=== PATIENT | female | born 1945 | race Caucasian/White ===

== ENCOUNTER 2024-08-13 09:42 | Outpatient (REF) | payer BC, SELFPAY ==
--- OUTSIDE RECORDS SUMMARY | 2024-08-13 09:56 | XMS_ITS | Encounter Summary ---
Author Organization [facility] Address [address] [place] [address] Care Team Providers Care Chronometer Adjuster Name Role Phone [facility], Primary Care Provider [phone] Reason for Visit * Reason Comments Neck Pain Patient reports one week of left sided neck pain. Patient denies any known injury at this time.?? Encounter Details Date Type Department Care Team (Late st Contact Info) Description 04/29/2024 9:30 EDT Walk-In [facility] [address] [place] [address] [id number] Jaylene Crawford PA-C [address] [place] [address] [address] [place], [place] [address] Muscle spasms of neck (Primary Dx) Social History Tobacco Use Types Packs/Day Years Used Date Smoking Tobacco: Never Assessed Sex and Gender Information Value Date Recorded Sex Assigned at Not on file Gender Identity Female 01/10/2024 11:47 EDT Sexual Orientation Not on file documented as of this encounter Last Filed Vital Signs Vital Sign Reading Time Taken Comments Blood Pressure 122/78 04/29/2024 0924 EDT Pulse 78 04/29/2024 0924 EDT Temperature 36.6 ??C (97.8 ??F) 04/29/2024 0924 EDT Respiratory Rate 16 04/29/2024 0924 EDT Oxygen Saturation 98% 04/29/2024 0924 EDT Inhaled Oxygen Concentration - - Weight - - Height - - Body Mass Index - - documented in this encounter Patient Instructions * Attachments The following attachments cannot be sent through Care Everywhere. * Neck Spasm (Danish) documented in this encounter Ordered Prescriptions Prescription Sig Dispensed Refills Start Date End Da te naproxen (NAPROSYN) 500 mg tabletIndications:Muscle spasms of neck Take 1 Tablet by mouth 2 times daily with breakfast and dinner. 30 Tablet 04/29/2024 methocarbamoL (ROBAXIN) 500 mg tabletIndications:Muscle spasms of neck Take 1 Tablet by mouth 4 times daily. 25 Tablet 04/29/2024 documented in this encounter Progress Notes * Arabella Wu RN - 04/29/2024 0930 EDT CC/HPI: Patient reports one week of left sided neck pain. Patient denies any known injury at this time. Covid Screening: In the last 72 hours, has the patient had: New or unusual cough, shortness of breath, new nasal congestion, sore throat, fever, chills, body aches, or new loss of taste or smell: No In the past 10 days, has the patient had a positive Covid test OR a confirmed close Covid exposure (<6ft for > 15mins in 24hr period)? (if yes, assign to [facility], regardless of vaccination status)-No PCP: [facility] ARABELLA WU RN 04/29/2024 9:21 * Jaylene Crawford PA-C - 04/29/2024 0930 EDT [facility] Chief Complaint(s): Neck Pain (Patient reports one week of left sided neck pain. Patient denies anyknown injury at this time./ ) HPI: Patient is here with her spouse, reports 6 days of left-sided atraumatic neck pain, patient reportsit might be because of how she sometimes falls asleep in a recliner, has done warm compresses, has taken Aleve, she is also try to take some of her Fioricet that she has for her migraines, she is otherwise well, patient reports the pain is left-sided and pulls in the area when she turns her head in any direction ROS: Review of Systems Constitutional: Negative for fever. Musculoskeletal: Positive for neck pain. Negative for falls. Objective: Examination: Vitals: BP 122/78 (BP Cuff Location: Left arm, BP Patient Position: Sitting, BP Cuff Sizes: Adult, regular) Pulse 78 Temp 36.6 ??C (97.8 ??F) (Oral) Resp 16 SpO2 98% Physical Exam Vitals reviewed. Constitutional: Appearance: Normal appearance. Musculoskeletal: General: Tenderness present. Comments: There is minor tenderness about the left SCM muscle, skin is intact, no erythema, no ecchymosis, no edema, insulation manager strength is equal bilaterally, patient has full range of motion of head and neck but reports the pulling sensation about the left side of her neck when she does move her head Neurological: Mental Status: She is alert and oriented to person, place, and time. Gait: Gait normal. Procedures Assessment & Plan: 1. Muscle spasms of neck - methocarbamoL (ROBAXIN) 500 mg tablet; Take 1 Tablet by mouth 4 times daily. Dispense: 25 Tablet;Refill: 0 - naproxen (NAPROSYN) 500 mg tablet; Take 1 Tablet by mouth 2 times daily with breakfast and dinner. Dispense: 30 Tablet; Refill: 0 Will treat with prescription strength anti-inflammatory and a mild muscle relaxer, discussed continue with the warm compresses, recommend patient do not take any other Aleve or ibuprofen with the Naprosyn, she can take Tylenol, further information home care recommendations was given in the AVS An appropriate medical screening examination was performed. The patient was assessed prior to discharge and deemed stable for discharge. documented in this encounter Plan of Treatment Not on file documented as of this encounter Visit Diagnoses Diagnosis Muscle spasms of neck- Primary Spasm of muscle documented in this encounter Care Teams Chronometer Adjuster Relationship Specialty Start Date End Date [facility], [place] [address] [place] [address] PCP - General 01/10/24 documented as of this encounter
--- OUTSIDE RECORDS SUMMARY | 2024-08-13 09:56 | XMS_ITS | Data Portability ---
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 Peripheral vascular disease 799461335 I73.9 Senile purpura 21689870 D69.2 Cerebral atrophy 6984722 00 G31.9 Hearing difficulty 89647 0000 H91.93 Elevated blood-pressure reading without diagnosis of hypertension 556073716 R03.0 [id number] [place] [address] 12/26/2022 10:31:57 12/26/2022 15:02:34 [id number] [place] [address] 03/12/2023 13:09:54 03/12/2023 14:04:23 Active or passive immunization 430571201 Z23 [id number] Magalis Arnold MD [address] [address] 05/07/2023 15:28:05 05/23/2023 08:41:36 COVID-19 643199315 U07.1 Health Concerns Section Related Observation LastModified by Organization Detai ls LastModified Time None Recorded Concern Status LastModified by Organization Details LastModified Time None Recorded Advance Directives Directive Y: Payers Encounter Date Sequence Insurance Name Policy Number Policy Lazar Covered Member ID Lazar Member ID Guarantor Name 12/10/2022 1 [facility] - CAPITATION PLAN (MEDICARE REPLACEMENT/A DVANTAGE - HMO) [id number] Adrianna Silverman [place] [id number] Adrianna [place]man [place] 12/18/2022 1 [facility] - CAPITATION PLAN (MEDICARE REPLACEMENT/A DVANTAGE - HMO) [id number] Adrianna Silverman [place] [id number] Adrianna Silverman [place] 12/26/2022 1 [facility] - CAPITATION PLAN (MEDICARE REPLACEMENT/A DVANTAGE - HMO) [id number] Adrianna Silverman [place] [id number] Adrianna Silverman [place] 03/12/2023 1 [facility] - CAPITATION PLAN (MEDICARE REPLACEMENT/A DVANTAGE - HMO) [id number] Adrianna Silverman [place] [id number] Adrianna Silverman [place] 05/07/2023 1 [facility] - CAPITATION PLAN (MEDICARE REPLACEMENT/A DVANTAGE - O) [id number] Adrianna Silverman [place] [id number] Adrianna Silverman [place] Notes Date Note Type Note Provider Name and Address Organization Details Recorded Time 12/18/2022 text/html Profound bilater al hearing lossdespite using hearing aids. Patient states she has been advised to get a cochlear implant by Audiology but she refuses this. Hyperlipidemia:Curr ently taking Atorvastatin 10 mg 1 tablet once a day in the evening. Stable on present regimen with no adverse reactions, side effects and or complaints noted with today's visit. Migraine:Currently taking Propranolol ER 80 mg 1 capsule once a day and Butalbital-Aspirin- Caffeine 50-325-40 mg 1 capsule every 8 hours as needed. Taking Excedrin Migraine as needed. Stable on present regimen with no adverse reactions, side effects and or complaints noted with today's visit. Hot Flashes:Not taking any medications. Magalis Arnold MD [address] [place], [address], [facility] - [facility] 12/18/2022 10:25:44 12/26/2022 text/html patient presents today for a blood pressure check and brought a blood pressure machine that she does not know how it works. Rasta zacarias [place] Marcelo [facility] 12/26/2022 11:06:23 03/12/2023 text/html Patient presents today for a covid booster vaccine. [place] zac[place] [facility] 03/12/2023 13:39:22 05/07/2023 text/html Patient presents today for Covid-19 symptoms. Patient started having the symptoms yesterday. Reports dry cough and headache. Denies body aches, had temperature of 99.8 today. Denies muscle pain, fever, SOB, chest pain, or wheezing. as per patient she took migraine pills with relief in headache. Any Concerns:with getting adequate exercise? {{No Yes*}}with balance, walking or falls? {{No* Yes}}with bladder control or leakage? {{No* Yes}}Notes (if applicable): covid19 test was: Positive Telehealth Consent:1) Verbal Consent to treat was obtained from the patient.2) Patient has been informed of what a Telehealth visit is: Telehealth is the practice of using telecommunication technology to evaluate, diagnosis, and care for patients at a distance.3) This Telehealth visit is medically necessary to prevent the spread of Covid-19.4) Patient has been informed and acknowledged that [facility] insurance and co-pays and deductibles may apply.5) Patient has been informed that while the provider is taking precautions to ensure privacy as required by HIPAA, the patient's surroundings also pose risks of a HIPAA breach for which the provider/ organization cannot be responsible. AIDA PICHARDO, SIGN FABRICATOR [address] [place], [address], [facility] - [facility] 05/08/2023 14:28:03 OBGyn Episode No OBEpisode recorded.
--- OUTSIDE RECORDS SUMMARY | 2024-08-13 09:56 | XMS_ITS | Referral Summary ---
Author Organization [facility] Address [address] [place] [address] Care Team Providers Care Log Scaler Name Role Phone [facility] [place] Primary Care Provider [phone] [phone] Encounters Date Type Department Care Team Description 05/15/2024 9:45 EDT Walk-In [facility] [address] [place] [address] Niharika Mercado NP Viral URI with cough (Primary Dx) from Last 3 Months Allergies No known active allergies Medications Medication Sig Dispensed Refills Start Date End Date Status atorvastatin (LIPITOR) 10 mg tablet 01/09/2024 Active butalbital-aspirin -caffeine (FIORINAL) capsule Take 1 Capsule by mouth 3 times daily. 09/18/2023 Active propRANolol (INDERAL LA) 80 mg SR capsule Take 1 Capsule by mouth daily. 01/01/2024 Active cholecalciferol, Vitamin D3, 25 mcg (1,000 unit) tablet Take 1 Tablet by mouth daily. As needed Active albuterol 90 mcg/actuation inhaler Inhale 2 Puffs as directed every 4 hours as needed (cough). 1 Each 01/10/2024 Active Additional Information Patient not taking.Reported on 2024 inhalational spacing device (AEROCHAMBER) For use with albuterol 1 Each 01/10/2024 Active Additional Information Patient not taking.Reported on 2024 methocarbamoL (ROBAXIN) 500 mg tabletIndications: Muscle spasms of neck Take 1 Tablet by mouth 4 times daily. 25 Tablet 04/29/2024 Active Additional Information Patient not taking.Reported on 05/15/2024 naproxen (NAPROSYN) 500 mg tabletIndications: Muscle spasms of neck Take 1 Tablet by mouth 2 times daily with breakfast and dinner. 30 Tablet 04/29/2024 Active benzonatate (TESSALON) 100 mg capsuleIndications :Viral URI with cough Take 1 Capsule by mouth 3 times daily as needed for Cough. 30 Capsule 05/15/2024 Active Active Problems No known active problems Social History Tobacco Use Types Packs/Day Years Used Date Smoking Tobacco: Never Assessed Sex and Gender Information Value Date Recorded Sex Assigned at Not on file Gender Identity Female 01/10/2024 11:47 EDT Sexual Orientation Not on file Last Filed Vital Signs Vital Sign Reading Time Taken Comments Blood Pressure 132/84 05/15/2024913 EDT Pulse 70 05/15/2024913 EDT Temperature 36.9 ??C (98.4 ??F) 05/15/2024913 EDT Respiratory Rate 20 05/15/2024913 EDT Oxygen Saturation 99% 05/15/2024913 EDT Inhaled Oxygen Concentration - - Weight - - Height - - Body Mass Index - - Plan of Treatment Not on file Care Teams Log Scaler Relationship Specialty Start Date End Date [facility] [address] [place] [address] PCP - General 01/10/24
--- OUTSIDE RECORDS SUMMARY | 2024-08-13 09:56 | XMS_ITS | Clinical Summary ---
Author Organization [facility] Address [address] [place] [address] Care Team Providers Care Machine Heel Sprayer Name Role Phone [facility] [place] Primary Care Provider [phone] [phone] Allergies No known active allergies Medications Medication [...] Active Active Problems No known active problems Encounters Date Type Department Care Team Description 05/15/2024 9:45 EDT Walk-In [facility] [address] [place] [address] Niharika Mercado, JO-ANN Viral URI with cough (Primary Dx) from Last 3 Months Social History Tobacco Use Types Packs/Day Years Used Date Smoking Tobacco: Never Assessed Sex and Gender Information Value Date Recorded Sex Assigned at Not on file Gender Identity Female 01/10/2024 11:47 EDT Sexual Orientation Not on file Obstetrics History Last Filed Vital Signs Vital Sign Reading Time Taken Comments Blood Pressure 132/84 05/15/2024913 EDT Pulse 70 05/15/2024913 EDT Temperature 36.9 ??C (98.4 ??F) 05/15/2024 0914 EDT Respiratory Rate 20 05/15/2024913 EDT Oxygen Saturation 99% 05/15/2024913 EDT Inhaled Oxygen Concentration - - Weight - - Height - - Body Mass Index - - Plan of Treatment Health Maintenance Due Date Last Done Comments Hepatitis C Screen 1945 RSV Immunization ( o r 60+ Years) (1 - 1-dose 60+ series) 2006 Fall Risk Screening 2011 COVID-19 Vaccine (2022- season) 2024 Care Teams Machine Heel Sprayer Relationship Specialty Start Date End Date [facility], [place] [address] [place] [address] PCP - General 01/10/24
--- OUTSIDE RECORDS SUMMARY | 2024-08-13 09:56 | XMS_ITS | Encounter Summary ---
Author Organization [facility] Address [address] [place] [address] Care Team Providers Care Test Deskman Name Role Phone [facility] Primary Care Provider [phone] [phone] Reason for Visit * Reason Comments Cough Nasal Congestion Encounter Details Date Type Department Care Team (Late st Contact Info) Description 2024 10:00 EDT Walk-In [address] [id number] Anabella Gatica PA-C [address] [facility] [address] [place], [place] [address] Viral URI with cough (Primary Dx) Social History Tobacco Use Types Packs/Day Years Used Date Smoking Tobacco: Never Assessed Sex and Gender Information Value Date Recorded Sex Assigned at Not on file Gender Identity Female 01/10/2024 11:47 EDT Sexual Orientation Not on file documented as of this encounter Last Filed Vital Signs Vital Sign Reading Time Taken Comments Blood Pressure 152/86 2024 1010 EDT Pulse 71 2024 1010 EDT Temperature 36.9 ??C (98.4 ??F) 2024 1010 EDT Respiratory Rate 20 2024 1010 EDT Oxygen Saturation 98% 2024 1010 EDT Inhaled Oxygen Concentration - - Weight - - Height - - Body Mass Index - - documented in this encounter Patient Instructions * Patient Instructions* Anabella Gatica PA-C - 2024 10:00 EDT Adrianna - You were seen today for head congestion, cough. Sounds like you usually have a fairly bad cough with any of your colds. It is unfortunate that you do not respond to the pqwu-fbj-maujjqz remedies. It looks like we have given this to before but I sent to the pharmacy a capsule for you to take every 8 hours, 3 times a day to help diminish the cough. It is impossible to completely get rid of a cough during a cold but it is listed below some other home remedies that you might find helpful. In general drinking lots of water can be helpful. Sometimes warm fluids are less irritating than cold to throat tissues. Sleeping sitting up can be helpful as well. I see you in your history that you have ever in the past and given an inhaler (albuterol inhaler) you could consider trying this again as well in the case that the cough is from a little air way spasm. [facility] Common Cold Instructions You can try to boost your immune system by: -Avoiding a high sugar diet. Refined sugar will lower your immune response -Eating fresh citrus fruits, such as orange. The fresher it is, the more potent -Vitamin C 2000 mg three times daily (example: Emergen-C powder packet in water) -Some studies suggest that zinc can reduce cold symptoms by a day or two (example: Zycam), but can cause some side effects -Chicken soup or veggie broth is very nutritious and has been shown to help! -For flulike symptoms, elderberry dissolvable tablets (found at most drug stores) or tincture (found at the health food stores) has shown promising results in studies for flu prevention and treatment For nasal congestion relief you can try: -Nasal saline rinses or lavage (example: Netipot, Neilmed, [place]) -Air humidifier, steamy shower, warm compress to your sinuses -Rubbing a small amount of peppermint oil on your cheeks and forehead. Avoid contact with your eyes. This will encourage drainage (like eating horseradish or wasabi). This can be found as a tincture in health foods stores For sore throat: -Gargle with salt water (1 tsp in a full cup of warm warm) -Throat lozenges such as Cepacol can be numbing and soothing -Ramon in broth/soup is known to ease swollen throats. A ramon-tumeric tea is especially potent -Warm water or herbal tea (with or without 1 tbsp of apple cider vinegar and 1 tbsp of honey) 4-6 times a day For cough: -Gargle with salt water -Apply vapor rub with menthol, eucalyptus, and camphor (example: Vicks VapoRub) to the neck -Honey and lemon in tea soothing to coughs -When appropriate, use a humidifier or steam from a shower For body aches or fever: -Rest -Acetaminophen and Ibuprofen are both fever- and pain-reducers For ear ache: -The more you swallow, the better the ears will drain -Salt water gargling -Warm compresses over the ear and sinuses -Steaming with eucalyptus, camphor, or thyme in simmering water. FLUIDS! FLUIDS! FLUIDS! (Water, broth, herbal tea). This thins out mucous and helps things drain. Return if symptoms worsen or fail to improve with supportive measures, or symptoms are lasting longer than 10-14 days. documented in this encounter Ordered Prescriptions Prescription Sig Dispensed Refills Start Date End Da te benzonatate (TESSALON) 100 mg capsuleIndications:Viral URI with cough Take 1 Capsule by mouth 3 times daily as needed for up to 5 days for Cough. 15 Capsule 2024 05/15/2024 documented in this encounter Progress Notes * Aydee Urena RN - 2024 1000 EDT CC/HPI: Patient is here with 4 days of nasal congestion and cough. No Covid testing done Covid Screening: In the last 72 hours, has the patient had: New or unusual cough, shortness of breath, new nasal congestion, sore throat, fever, chills, body aches, or new loss of taste or smell without a reasonable alternative diagnosis? In the past 10 days, has the patient had a positive Covid test OR a confirmed close Covid exposure? * Anabella Gatica PA-C - 2024 1000 EDT [facility] [place] [place] [facility] Chief Complaint(s): Chief Complaint Patient presents with Cough Nasal Congestion Assessment & Plan: Adrianna was seen today for cough and nasal congestion. Diagnoses and all orders for this visit: Viral URI with cough - benzonatate (TESSALON) 100 mg capsule; Take 1 Capsule by mouth 3 times daily as needed for up to 5 days for Cough. Adrianna Wray is a pleasant 79 y.o. yr old female seen today for nasal congestion and cough. No fevers. Not sleeping well due to cough. Denies sob. On exam vital signs are normal. PE with general congestion, cough. Clear lungs. My clinical diagnosis is viral process. Patient is generally well appearing, afebrile, non toxic, well hydrated. I recommend trial of tessalon perles. Other remedies for home care reviewed. RE check if not improving in a few days. An appropriate medical screening examination was performed. The patient was assessed prior to discharge and deemed stable for discharge home I printed material and reviewed home management and follow up in detail with patient, see patient instructions below. Patient is advised in use of [employer] to access any lab results or other pertinentvisit information. All questions are answered. Patient is advised to follow up for urgent reassessment for any new/worsening signs and symptoms here at [facility] or ED. Otherwise, follow up with PCP/or if no PCP at [facility]/ER for symptoms that persist past current course of treatment or expected resolution as discussed. We did discuss theoption of Zoom visits with primary care provider or with [facility] for follow up that is non-urgent. Patient verbalizes understanding and agreement with this plan of care. HPI: Patient is here with 4 days of nasal congestion and cough. No sore throat, sob. Denies body aches, no fevers. No Covid testing done. Doesn't feel bad just the cough keeps her up, starts with any prolonged talking or laughing. She had some leftover codeine cough syrup but states this actually just makes her cough worse. Has in the past tried the albuterol inhaler on her medication list as well and this also has not been helpful. She is already sleeping with her head elevated. Is using qayv-xma-qyvgfiy herbal teas, various cough syrups already. Salt water gargles. She has Tessalon Perles on her medication list but cannot recall if these were helpful or not. ROS: See HPI for details Objective: Vitals and nursing notes reviewed Examination: BP (!) 152/86 (BP Cuff Location: Right arm, BP Patient Position: Sitting, BP Cuff Sizes: Adult, regular) Pulse 71 Temp 36.9 ??C (98.4 ??F) (Oral) Resp 20 SpO2 98% Physical Exam Constitutional: Comments: Pleasant female, no acute distress, moderately congested sounding HENT: Ears: Comments: Hearing aids removed, right eardrum scared by cerumen; left clear and normal Nose: Congestion present. Mouth/Throat: Mouth: Mucous membranes are moist. Pharynx: No oropharyngeal exudate or posterior oropharyngeal erythema. Eyes: Conjunctiva/sclera: Conjunctivae normal. Cardiovascular: Rate and Rhythm: Normal rate and regular rhythm. Heart sounds: No murmur heard. Pulmonary: Effort: Pulmonary effort is normal. Breath sounds: No wheezing, rhonchi or rales. Musculoskeletal: Cervical back: Normal range of motion and neck supple. Lymphadenopathy: Cervical: No cervical adenopathy. Skin: General: Skin is warm and dry. Findings: No rash. Neurological: Mental Status: She is oriented to person, place, and time. Data reviewed with patient (past results): PMHx/ALL/DI and pertinent recent Labs/OV's This note may be in part documented using [employer] dictation software. Please forgive any errors, omissions or typos that may result from use of dictation. documented in this encounter Plan of Treatment Not on file documented as of this encounter Visit Diagnoses Diagnosis Viral URI with cough- Primary Acute upper respiratory infections of unspecified site documented in this encounter Discontinued Medications Medication Sig Discontinue Reason Start Date End Da te guaiFENesin-codeine (GUAIFENESIN AC) 100-10 mg/5 mL liquid Take 10 mL by mouth 3 times daily as needed for Cough. Daily Max: 30 mL Therapy completed 01/10/2024 2024 benzonatate (TESSALON) 100 mg capsule TAKE 1 CAPSULE BY MOUTH THREE TIMES DAILY NEEDED FOR 10 DAYS Reorder 05/07/2023 2024 documented as of this encounter Care Teams Test Deskman Relationship Specialty Start Date End Date [facility], [place] [address] [place] [address] PCP - General 01/10/24 documented as of this encounter
--- OUTSIDE RECORDS SUMMARY | 2024-08-13 09:56 | XMS_ITS | Encounter Summary ---
Author Organization [facility] Address [address] [place] [address] Care Team Providers Care Land Examiner Name Role Phone [facility] [phone] Reason for Visit * Reason Comments Cough Encounter Details Date Type Department Care Team (Late st Contact Info) Description 05/15/2024 9:45 EDT Walk-In [address] [id number] Niharika Mercado NP [address] [facility] [address] [place] [address] Viral URI with cough (Primary Dx) Social History Tobacco Use Types Packs/Day Years Used Date Smoking Tobacco: Never Assessed Sex and Gender Information Value Date Recorded Sex Assigned at Not on file Gender Identity Female 01/10/2024 11:47 EDT Sexual Orientation Not on file documented as of this encounter Last Filed Vital Signs Vital Sign Reading Time Taken Comments Blood Pressure 132/84 05/15/2024 0914 EDT Pulse 70 05/15/2024 0914 EDT Temperature 36.9 ??C (98.4 ??F) 05/15/2024 0914 EDT Respiratory Rate 20 05/15/202414 EDT Oxygen Saturation 99% 05/15/2024 0914 EDT Inhaled Oxygen Concentration - - Weight - - Height - - Body Mass Index - - documented in this encounter Patient Instructions * Patient Instructions* Niharika Mercado NP - 05/15/2024 9:45 EDT I am sorry that you have another cough. As we discussed, we do not have a lot of great medications to treat cough. I recommend that you continue with the Tessalon, we do not have a lot of great medications to treat cough. I recommend that you continue with the Tessalon, but that you take 1000 mg ofTylenol as soon as you feel your headache come on. Please also drink lots of. If you start to have worsening cough, new shortness of breath, wheezing, unusual fatigue or fevers, then you must be reevaluated documented in this encounter Ordered Prescriptions Prescription Sig Dispensed Refills Start Date End Da te benzonatate (TESSALON) 100 mg capsuleIndications:Viral URI with cough Take 1 Capsule by mouth 3 times daily as needed for Cough. 30 Capsule 05/15/2024 documented in this encounter Progress Notes * Jl Alford MA - 05/15/2024 0961 EDT CC/HPI: Patient c/o cough since yesterday. Had good results with benzonatate but it gave her a headache. Respiratory/COVID Sxs?:Y JL ALFORD MA 05/15/24 9:10 * Niharika Meracdo NP - 05/15/2024 0997 EDT [facility] Chief Complaint(s): Chief Complaint Patient presents with Cough Assessment & Plan: 1. Viral URI with cough benzonatate (TESSALON) 100 mg capsule New Prescriptions No medications on file 79 year old female seen on 04/13 for viral URI presents with new cough and congestion, feeling well overall -Well-appearing, normal vitals, oxygen 99% - Patient is primarily here to discuss cough medication, Tessalon has worked well for her, but she does get a headache with it, and has been taking her migraine medication - Discussed with patient, headaches that she had are getting are very mild, are not similar to her migraines; patient has taken codeine cough syrup in the past and does not like it, states that otherOTC cough meds do not work for her - Normal lung exam, no clinical concerns - Patient declines COVID testing - Discussed with patient that we could try Flonase or an inhaler, she states that she has used her inhaler and it is not helping, and that Flonase does not work for her; discussed that there are not other cough medication options - Given that Tessalon is helping, advised patient to continue and to take 1000 mg of Tylenol when she feels her headache, on, she can do that up to 4 times a day; would try that over migraine medication, so that she can save that for when she gets a migraine - Advise lots of fluids, rest, monitor her symptoms, return precautions were reviewed in depth HPI: - 2 days of cough - Recently got over a cold - Hard to sleep at night due to the cough - Has tried inhaler, has not helped - No shortness of breath or wheezing - No fevers - Feeling well otherwise, just bothered by the cough - Slight runny nose - Tessalon helps her cough, but it gives her headache - Takes migraine medication, has been using that - Migraine meds are helping, but now she is running out -The headaches you are getting are not nearly as bad as her migraines, they are relatively mild - Has not tried Tylenol Cough Pertinent negatives include no chest pain, chills, fever, headaches, shortness of breath or wheezing. ROS: Review of Systems Constitutional: Negative for chills, fever and malaise/fatigue. HENT: Positive for congestion. Respiratory: Positive for cough. Negative for shortness of breath and wheezing. Cardiovascular: Negative for chest pain. Neurological: Negative for dizziness and headaches. Objective: Vitals and nursing notes reviewed Examination: BP 132/84 Pulse 70 Temp 36.9 ??C (98.4 ??F) (Oral) Resp 20 SpO2 99% Physical Exam Vitals reviewed. Constitutional: General: She is not in acute distress. Appearance: Normal appearance. She is not ill-appearing or toxic-appearing. HENT: Head: Normocephalic and atraumatic. Pulmonary: Effort: Pulmonary effort is normal. No respiratory distress. Breath sounds: Normal breath sounds. No stridor. No wheezing, rhonchi or rales. Chest: Chest wall: No tenderness. Musculoskeletal: General: Normal range of motion. Skin: General: Skin is warm and dry. Neurological: General: No focal deficit present. Mental Status: She is alert and oriented to person, place, and time. Mental status is at baseline. Psychiatric: Mood and Affect: Mood normal. Behavior: Behavior normal. Thought Content: Thought content normal. Judgment: Judgment normal. Data reviewed with patient (current and past results): recent [facility] visit summary reviewed, summary: 04/13 visit for viral URI, prescribed tessalon An appropriate medical screening examination was performed. The patient was assessed prior to discharge and deemed stable for discharge home. This note may be in part documented using voice dictation software. Please forgive any errors or omissions that may result from use of dictation. documented in this encounter Plan of Treatment Not on file documented as of this encounter Visit Diagnoses Diagnosis Viral URI with cough- Primary Acute upper respiratory infections of unspecified site documented in this encounter Discontinued Medications Medication Sig Discontinue Reason Start Date End Da te benzonatate (TESSALON) 100 mg capsuleIndications:Viral URI with cough Take 1 Capsule by mouth 3 times daily as needed for up to 5 days for Cough. Reorder 2024 05/15/2024 documented as of this encounter Care Teams Land Examiner Relationship Specialty Start Date End Date [facility] [place] [address] [place] [address] PCP - General 01/10/24 documented as of this encounter
--- OUTSIDE RECORDS SUMMARY | 2024-08-13 09:57 | XMS_ITS | Encounter Summary ---
Author Organization [facility] Address [address] [place] [address] Care Team Providers Care Ammonia Print Operator Name Role Phone Unavailable Primary Care Provider Unavailabl e Encounter Details Date Type Department Care Team (Late st Contact Info) Description 10/22/2005 Results Only [facility] - Maple conversion [address] [place] [address] Lamine Childs MD [address] [place] [address] [address] [address] Social History Tobacco Use Types Packs/Day Years Used Date Smoking Tobacco: Never Assessed Sex and Gender Information Value Date Recorded Sex Assigned at Not on file Gender Identity Female 01/10/2024 11:47 EDT Sexual Orientation Not on file documented as of this encounter Plan of Treatment Not on file documented as of this encounter Procedures Procedure Name Priority Date/Time Associated Diagnosis Comments CYTOPATHOLOGY Routine 10/22/2005 0:00 EST documented in this encounter Results * CYTOPATHOLOGY (10/22/2005 0:00 EST) Pathology Report: CYTOPATHOLOGY REPORT Reports generated via electronic interface contain original data; however they are lacking the format of the original report. Caution should be taken when reading/interpreti ng unformatted reports. Name: ? ADRIANNA MARCUS ? Accession #: ? [id number] : ? 1945 (Age: 60) ??F ?Collect Date: ? 10/22/2005 Location: ? [facility] ? Receive Date: ? 10/23/2005 Provider: ?LAMINE CHILDS MD Copy to: ? Specimen/Source: ?ThinPrep Pap Test, Cervix/Endocervix, processed on [employer] Imaging System, with manual evaluation Last Menstrual Period: ? Menstrual/Pregnanc y Status: ? Menopausal ? SPECIMEN ADEQUACY ? Satisfactory for Evaluation - assessment of transformation zone component not applicable ( e.g. atrophy, vaginal sample, hysterectomy) GENERAL CATEGORIZATION ? Negative for Intraepithelial Lesion or Malignancy ? Document reviewed and electronically signed by: ? DAMIAN Gutierrez(ASCP) ? Report Date: ??10/24/2005 16:27 End of Report [facility] 10/22/2005 10/23/2005 Lamine Childs MD PATHOLOGY ORDERABLES Performing Organization Address City/State/[facility] Co de Phone Number [facility] [address] [place] [address] documented in this encounter Visit Diagnoses Not on filedocumented in this encounter
--- OUTSIDE RECORDS SUMMARY | 2024-08-13 09:57 | XMS_ITS | Encounter Summary ---
Author Organization [facility] Address [address] [place] [address] Care Team Providers Care Head Of Precision Targeting Name Role Phone Unavailable Primary Care Provider Unavailabl e Encounter Details Date Type Department Care Team (Late st Contact Info) Description 05/02/2011 Results Only [facility] - [facility] [address] [place] [id number] Candice Robles, ASPNET DEVELOPER Social History Tobacco Use Types Packs/Day Years Used Date Smoking Tobacco: Never Assessed Sex and Gender Information Value Date Recorded Sex Assigned at Not on file Gender Identity Female 01/10/2024 11:47 EDT Sexual Orientation Not on file documented as of this encounter Plan of Treatment Not on file documented as of this encounter Procedures Procedure Name Priority Date/Time Associated Diagnosis Comments PAP TEST- RESULT ONLY Routine 05/02/2011 0:00 EDT documented in this encounter Results * PAP TEST- RESULT ONLY (05/02/2011 0:00 EDT) Pathology Report: CYTOPATHOLOGY REPORT ? Reports generated via electronic interface contain original data; ? however they are lacking the format of the original report. ? Caution should be taken when reading/interpreti ng unformatted reports. ? Name: ? ADRIANNA MARCUS ? Accession #: ? [id number] ? : ? 1945 (Age: 66) ??F ?Collect Date: ? 05/02/2011 ? Location: ? [facility] ? Receive Date: ? 05/03/2011 ? Provider: ?CANDICE M ALDO ASPNET DEVELOPER ? Copy to: ? Specimen/Source: ?Pap Test, Cervix/Endocervix, ThinPrep Imaging System ? with manual evaluation ? Last Menstrual Period: ? 14 YEARS ? Other: ? Additional clinical information: Pap ??1/26/09 Negative ? SPECIMEN ADEQUACY ? Satisfactory for Evaluation ? - assessment of transformation zone component not applicable ( e.g. atrophy, ? vaginal sample, hysterectomy) ? GENERAL CATEGORIZATION ? Negative for Intraepithelial Lesion or Malignancy ? Document reviewed and electronically signed by: ? Lynan Guero, CT(ASCP) ? Report Date: ??05/07/2011 13:00 ? End of Report ? [facility] 05/02/2011 05/03/2011 Candice Robles NP PATHOLOGY ORDERABLES [facility] [address] [place] [address] documented in this encounter Visit Diagnoses Not on filedocumented in this encounter
--- OUTSIDE RECORDS SUMMARY | 2024-08-13 09:57 | XMS_ITS | Encounter Summary ---
Author Organization [facility] Address [address] [place] [address] Care Team Providers Care Cash Crop Farmer Name Role Phone Unavailable Primary Care Provider Unavailabl e Encounter Details Date Type Department Care Team (Late st Contact Info) Description 10/25/2006 Results Only [facility] - Maple conversion [address] [place] [address] Lamine Childs MD [address] [place] [address] [address] [address] Social History Tobacco Use Types [...] Priority Date/Time Associated Diagnosis Comments CYTOPATHOLOGY Routine 10/25/2006 0:00 EST documented in this encounter Results * CYTOPATHOLOGY (10/25/2006 0:00 EST) Pathology Report: CYTOPATHOLOGY REPORT Reports generated via electronic interface contain original data; however they are lacking the format of the original report. Caution should be taken when reading/interpreti ng unformatted reports. Name: ? ADRIANNA MARCUS ? Accession #: ? [id number] : ? 1945 (Age: 61) ??F ?Collect Date: ? 10/25/2006 Location: ? [facility] ? Receive Date: ? 10/28/2006 Provider: ?LAMINE CHILDS MD Copy to: ? Specimen/Source: ?ThinPrep Pap Test, Cervix/Endocervix, processed on [employer] ThinPrep Imaging System, with manual evaluation Last Menstrual Period: ? Other: ? Additional clinical information: nl exam, stenotic cx ? SPECIMEN ADEQUACY ? Satisfactory for Evaluation - transformation zone component present - scant squamous epithelial component secondary to excessive inflammation GENERAL CATEGORIZATION ? Negative for Intraepithelial Lesion or Malignancy ? Document reviewed and electronically signed by: ? DAMIAN Khanna(ASCP) ? Report Date: ??10/29/2006 08:00 End of Report [facility] 10/25/2006 10/28/2006 Lamine Childs MD PATHOLOGY ORDERABLES Performing Organization Address City/State/[facility] Co de Phone Number [facility] GALLEGOS [address] [place] [address] documented in this encounter Visit Diagnoses Not on filedocumented in this encounter
--- OUTSIDE RECORDS SUMMARY | 2024-08-13 09:57 | XMS_ITS | Encounter Summary ---
Author Organization [facility] Address [address] [place] [address] Care Team Providers Care Director Of Services Name Role Phone Unavailable Primary Care Provider Unavailabl e Encounter Details Date Type Department Care Team (Late st Contact Info) Description 09/24/2003 Results Only [facility] - Maple conversion [address] [place] [address] Lamine Childs MD [address] [place] [address] [address] [address] Social History Tobacco Use Types [...] Priority Date/Time Associated Diagnosis Comments CYTOPATHOLOGY Routine 09/24/2003 0:00 EST documented in this encounter Results * CYTOPATHOLOGY (09/24/2003 0:00 EST) Pathology Report: CYTOPATHOLOGY REPORT Reports generated via electronic interface contain original data; however they are lacking the format of the original report. Caution should be taken when reading/interpreti ng unformatted reports. Name: ? ADRIANNA MARCUS ? Accession #: ? [id number] : ? 1945 (Age: 58) ??F ?Collect Date: ? 09/24/2003 Location: ? [facility] ? Receive Date: ? 09/28/2003 Provider: ?LAMINE CHILDS MD Copy to: ? Specimen/Source: ?ThinPrep Pap Test, Cervix/Endocervix Last Menstrual Period: ? Other: ? HPVA - HPV testing requested if ASC-US on the current ThinPrep Pap test. ? SPECIMEN ADEQUACY ? Satisfactory for Evaluation - transformation zone component absent GENERAL CATEGORIZATION ? Negative for Intraepithelial Lesion or Malignancy ? Document reviewed and electronically signed by: ? Yelitza Marina, SCT(ASCP) ? Report Date: ??10/04/2003 12:26 End of Report [facility] 09/24/2003 09/28/2003 Lamine Childs MD PATHOLOGY ORDERABLES [facility] [address] [place] [address] documented in this encounter Visit Diagnoses Not on filedocumented in this encounter
--- OUTSIDE RECORDS SUMMARY | 2024-08-13 09:57 | XMS_ITS | Encounter Summary ---
Author Organization [facility] Address [address] [place] [address] Care Team Providers Care Band Saw Operator Name Role Phone Unavailable Primary Care Provider Unavailabl e Encounter Details Date Type Department Care Team (Late st Contact Info) Description 09/21/2002 Results Only [facility] - Maple conversion [address] [place] [address] Lamine Childs MD [address] [place] [address] [address] [phone] Social History Tobacco Use Types [...] Priority Date/Time Associated Diagnosis Comments CYTOPATHOLOGY Routine 09/21/2002 0:00 EST documented in this encounter Results * CYTOPATHOLOGY (09/21/2002 0:00 EST) Pathology Report: CYTOPATHOLOGY REPORT Reports generated via electronic interface contain original data; however they are lacking the format of the original report. Caution should be taken when reading/interpreti ng unformatted reports. Name: ? ADRIANNA MARCUS ? Accession #: ? [id number] : ? 1945 (Age: 57) ??F ?Collect Date: ? 09/21/2002 Location: ? [facility] ? Receive Date: ? 09/22/2002 Provider: ?LAMINE CHILDS MD Copy to: ? Specimen/Source: ?ThinPrep Pap Test, Cervix/Endocervix Last Menstrual Period: ? SPECIMEN ADEQUACY ? Satisfactory for Evaluation - transformation zone component present - scant squamous epithelial component secondary to excessive inflammation GENERAL CATEGORIZATION ? Negative for Intraepithelial Lesion or Malignancy INTERPRETATION ? Reactive cellular changes associated with inflammation present (includes repair). ? Document reviewed and electronically signed by: ? Rufina Greene MD PhD ? Report Date: ??09/24/2002 11:21 End of Report [facility] 09/21/2002 09/22/2002 Lamine Childs MD PATHOLOGY ORDERABLES [facility] [address] [place] [address] documented in this encounter Visit Diagnoses Not on filedocumented in this encounter
--- OUTSIDE RECORDS SUMMARY | 2024-08-13 09:57 | XMS_ITS | Encounter Summary ---
Author Organization [facility] Address [address] [place] [address] Care Team Providers Care Deburrer Machine Name Role Phone Unavailable Primary Care Provider Unavailabl e Encounter Details Date Type Department Care Team (Late st Contact Info) Description 10/27/2007 Results Only [facility] - Maple conversion [address] [place] [address] Lamine Childs MD [address] [place] [address] [address] [address] Social History Tobacco Use Types [...] Priority Date/Time Associated Diagnosis Comments CYTOPATHOLOGY Routine 10/27/2007 0:00 EST documented in this encounter Results * CYTOPATHOLOGY (10/27/2007 0:00 EST) Pathology Report: CYTOPATHOLOGY REPORT Reports generated via electronic interface contain original data; however they are lacking the format of the original report. Caution should be taken when reading/interpreti ng unformatted reports. Name: ? ADRIANNA MARCUS ? Accession #: ? [id number] : ? 1945 (Age: 62) ??F ?Collect Date: ? 10/27/2007 Location: ? [facility] ? Receive Date: ? 10/28/2007 Provider: ?LAMINE CHILDS MD Copy to: ? Specimen/Source: ?ThinPrep Pap Test, Cervix/Endocervix, processed on [employer] ThinPrep Imaging System, with manual evaluation Last Menstrual Period: ? Other: ? HPVA - HPV testing requested if ASC-US on the current ThinPrep Pap test. Additional clinical information: atrophic vagina ? SPECIMEN ADEQUACY ? Satisfactory for Evaluation - assessment of transformation zone component not applicable ( e.g. atrophy, vaginal sample, hysterectomy) GENERAL CATEGORIZATION ? Negative for Intraepithelial Lesion or Malignancy ? Document reviewed and electronically signed by: ? Delilah Tidwell, DAMIAN(ASCP)(IAC) ? Report Date: ??10/31/2007 10:15 End of Report [facility] 10/27/2007 10/28/2007 Lamine Childs MD PATHOLOGY ORDERABLES [facility] [address] [place] [address] documented in this encounter Visit Diagnoses Not on filedocumented in this encounter
--- OUTSIDE RECORDS SUMMARY | 2024-08-13 09:57 | XMS_ITS | Encounter Summary ---
Author Organization [facility] Address [address] [place] [address] Care Team Providers Care Bariatric Coordinator Name Role Phone [facility] [phone] Reason for Visit * Reason Comments Cough Nasal Congestion Shortness of Breath Encounter Details Date Type Department Care Team (Late st Contact Info) Description 01/10/2024 12:00 EDT Walk-In [address] [id number] Liang Mixon NP [address] [facility] [address] [place], [place] [address] Acute cough (Primary Dx) Social History Tobacco Use Types Packs/Day Years Used Date Smoking Tobacco: Never Assessed Sex and Gender Information Value Date Recorded Sex Assigned at Not on file Gender Identity Female 01/10/2024 11:47 EDT Sexual Orientation Not on file documented as of this encounter Last Filed Vital Signs Vital Sign Reading Time Taken Comments Blood Pressure 146/82 01/10/2024 1156 EDT Pulse 85 01/10/2024 1156 EDT Temperature 36.8 ??C (98.2 ??F) 01/10/2024 1156 EDT Respiratory Rate 22 01/10/2024 1156 EDT Oxygen Saturation 98% 01/10/2024 1156 EDT Inhaled Oxygen Concentration - - Weight - - Height - - Body Mass Index - - documented in this encounter Patient Instructions * Patient Instructions* Liang Mixon NP - 01/10/2024 12:00 EDT Use guaifenesin-codeine for night time assist with cough and sleep. Albuterol inhaler with aerochamber during the day. Shake the albuterol - place it in the chamber spray and inhale holding your breath for a few seconds. Rest and repeat x1 for a total of 2 puffs. This will help with feels of shortness of breath and help open the airway. Only take as needed. Stop all other forms of Robitussin. Stop mucinex It is okay to use honey, vicks vapor rub. documented in this encounter Ordered Prescriptions Prescription Sig Dispensed Refills Start Date End Da te inhalational spacing device (AEROCHAMBER) For use with albuterol 1 Each 01/10/2024 albuterol 90 mcg/actuation inhaler Inhale 2 Puffs as directed every 4 hours as needed (cough). 1 Each 01/10/2024 guaiFENesin-codeine (GUAIFENESIN AC) 100-10 mg/5 mL liquid Take 10 mL by mouth 3 times daily as needed for Cough. Daily Max: 30 mL 120 mL 01/10/2024 2024 documented in this encounter Progress Notes * Denise Bishop RN - 01/10/2024 1200 EDT CC/HPI: Pt reports URI that began last Saturday with cough, congestion and SOB. Tried robitussin with honey and mucinex fast max OTC. [place]. Covid Screening: In the last 72 hours, has the patient had: New or unusual cough, shortness of breath, new nasal congestion, sore throat, fever, chills, body aches, or new loss of taste or smell without a reasonable alternative diagnosis*? (If yes, assign to ARC)- as above In the past 10 days, has the patient had a positive Covid test OR a confirmed close Covid exposure (<6ft for > 15mins in 24hr period)? (if yes, assign to ARC, regardless of vaccination status)-NO No covid testing done at home *may be determined by RN or in discussion with available provider (SUPPLY SPECIALIST's and CCA's can defer to Charge Nurse to complete triage when appropriate) PCP: [facility] * Liang Mixon NP - 01/10/2024 1200 EDT [facility] Chief Complaint(s): Cough, Nasal Congestion, and Shortness of Breath Assessment & Plan: 1. Acute cough New Prescriptions ALBUTEROL 90 MCG/ACTUATION INHALER Inhale 2 Puffs as directed every 4 hours as needed (cough). GUAIFENESIN-CODEINE (GUAIFENESIN AC) 100-10 MG/5 ML LIQUID Take 10 mL by mouth 3 times daily as needed for Cough. Daily Max: 30 mL INHALATIONAL SPACING DEVICE (AEROCHAMBER) For use with albuterol This is a 78 y.o. yr old female patient is generally well appearing, afebrile, non toxic, well hydrated, stable on exam with who presents with cough that is keeping her up at night. She reports approximately 1 yr ago she was given cough with Codeine from her doctor in [place] and it worked well. She is very hard of hearing and is helping with the visit. He reports she is not getting much sleep and all the multiple things they have tried are not working. She is coughing to the point almost passing out related to thick mucous. She has no other symptoms just lasting cough. Denies shortness of breath unless during her coughing fits. No fever. Encouraged good hydration Albuterol inhaler with demonstration on how to use it Guaifenesin with codeine for night time. Other considered diagnosis include: URI vs pneumonia HPI: HPI Adrianna Wray is a 78 y.o. yr old female here with complaints of URI that began last Saturday with cough, congestion and SOB. Tried robitussin with honey and mucinex fast max over the counter. ROS: ROS See HPI Social History Tobacco Use Smoking Status Not on file Smokeless Tobacco Not on file I have reviewed current problem list and current medications. Objective: Examination: Vital signs and nursing notes reviewed. Vitals: BP (!) 146/82 (BP Cuff Location: Left arm, BP Patient Position: Sitting, BP Cuff Sizes: Adult, long) Pulse 85 Temp 36.8 ??C (98.2 ??F) (Oral) Resp 22 SpO2 98% There is no height or weight on file to calculate BMI. Physical Exam Constitutional: General: She is not in acute distress. HENT: Nose: Nose normal. Mouth/Throat: Mouth: Mucous membranes are moist. Pharynx: Oropharynx is clear. Eyes: Conjunctiva/sclera: Conjunctivae normal. Cardiovascular: Rate and Rhythm: Normal rate. Heart sounds: Normal heart sounds. Pulmonary: Effort: Pulmonary effort is normal. Breath sounds: Normal breath sounds. Musculoskeletal: Cervical back: Normal range of motion and neck supple. Skin: General: Skin is warm and dry. Neurological: Mental Status: She is alert and oriented to person, place, and time. An appropriate medical screening examination was performed. The patient was assessed prior to discharge and deemed stable for discharge home. documented in this encounter Plan of Treatment Not on file documented as of this encounter Visit Diagnoses Diagnosis Acute cough- Primary documented in this encounter Discontinued Medications Medication Sig Discontinue Reason Start Date End Da te guaifenesin/dextromethor jean-baptiste (ROBITUSSIN HONEY MAX DM ORAL) Take by mouth. As needed Therapy completed 01/10/2024 guaiFENesin (MUCINEX FAST-MAX CHEST-CONGEST) 100 mg/5 mL liquid Take 10 mL by mouth every 4 hours as needed. As needed Therapy completed 01/10/2024 documented as of this encounter Historical Medications * This list may reflect changes made after this encounter. Medication Sig Dispensed Refills Start Date End Date cholecalciferol, Vitamin D3, 25 mcg (1,000 unit) tablet Take 1 Tablet by mouth daily. As needed propRANolol (INDERAL LA) 80 mg SR capsule Take 1 Capsule by mouth daily. 01/01/2024 kgwqusukha-jfgjcsd-qaqya ine (FIORINAL) capsule Take 1 Capsule by mouth 3 times daily. 09/18/2023 atorvastatin (LIPITOR) 10 mg tablet 01/09/2024 guaiFENesin (MUCINEX FAST-MAX CHEST-CONGEST) 100 mg/5 mL liquid Take 10 mL by mouth every 4 hours as needed. As needed 01/10/2024 guaifenesin/dextromethor jean-baptiste (ROBITUSSIN HONEY MAX DM ORAL) Take by mouth. As needed 01/10/2024 benzonatate (TESSALON) 100 mg capsule TAKE 1 CAPSULE BY MOUTH THREE TIMES DAILY NEEDED FOR 10 DAYS 05/07/2023 2024 added in this encounter Care Teams Bariatric Coordinator Relationship Specialty Start Date End Date [facility] [address] [place] [address] PCP - General 01/10/24 documented as of this encounter
--- OUTSIDE RECORDS SUMMARY | 2024-08-13 09:57 | XMS_ITS | Encounter Summary ---
Author Organization [facility] Address [address] [place] [address] Care Team Providers Care Radon Inspector Name Role Phone Unavailable Primary Care Provider Unavailabl e Encounter Details Date Type Department Care Team (Late st Contact Info) Description 09/15/[address] [facility] - [facility] conversion [address] [place] [address] Lamine Childs MD [address] [place] [address] [address] [address] Social History Tobacco Use Types [...] Priority Date/Time Associated Diagnosis Comments CYTOPATHOLOGY Routine 09/15/2001 0:00 EST documented in this encounter Results * CYTOPATHOLOGY (09/15/2001 0:00 EST) Pathology Report: CYTOPATHOLOGY REPORT Reports generated via electronic interface contain original data; however they are lacking the format of the original report. Caution should be taken when reading/interpreti ng unformatted reports. Name: ? ADRIANNA MARCUS ? Accession #: ? [id number] : ? 1945 (Age: 56) ??F ?Collect Date: ? 09/15/2001 Location: ? [facility] ? Receive Date: ? 09/16/2001 Provider: ?LAMINE CHILDS MD Copy to: ? Specimen/Source: ?ThinPrep Pap Test, Cervix/Endocervix Last Menstrual Period: ? 05 Menstrual/Pregnanc y Status: ? Amenorrhea ? SPECIMEN ADEQUACY ? Satisfactory for evaluation. GENERAL CATEGORIZATION ? Within Normal Limits ? Document reviewed and electronically signed by: ? DAMIAN Dunn(ASCP) ? Report Date: ??09/18/2001 09:57 End of Report [facility] 09/15/2001 09/16/2001 Lamine Childs MD PATHOLOGY ORDERABLES [facility] [address] [place] [address] documented in this encounter Visit Diagnoses Not on filedocumented in this encounter
--- OUTSIDE RECORDS SUMMARY | 2024-08-13 09:57 | XMS_ITS | Encounter Summary ---
Author Organization [facility] Address [address] [place] [address] Care Team Providers Care Supervisor Customer Services Name Role Phone Unavailable Primary Care Provider Unavailabl e Encounter Details Date Type Department Care Team (Late st Contact Info) Description 11/01/2008 Before PRISM Converted Visit ([place]) [facility] - [facility] conversion [address] [place] [address] Candice Robles, BLOCK FEEDER Social History Tobacco Use Types Packs/Day Years Used Date Smoking Tobacco: Never Assessed Sex and Gender Information Value Date Recorded Sex Assigned at Not on file Gender Identity Female 01/10/2024 11:47 EDT Sexual Orientation Not on file documented as of this encounter Plan of Treatment Not on file documented as of this encounter Procedures Procedure Name Priority Date/Time Associated Diagnosis Comments CYTOPATHOLOGY Routine 11/01/2008 0:00 EST documented in this encounter Results * CYTOPATHOLOGY (11/01/2008 0:00 EST) Pathology Report: CYTOPATHOLOGY REPORT ? Reports generated via electronic interface contain original data; ? however they are lacking the format of the original report. ? Caution should be taken when reading/interpreti ng unformatted reports. ? Name: ? ADRIANNA MARCUS ? Accession #: ? [id number] ? : ? 1945 (Age: 63) ??F ?Collect Date: ? 11/01/2008 ? Location: ? [facility] ? Receive Date: ? 11/02/2008 ? Provider: ?CANDICE M ALDO BLOCK FEEDER ? Copy to: ? Specimen/Source: ?Pap Test, Cervix/Endocervix, ThinPrep Imaging System ? with manual evaluation ? Last Menstrual Period: ? 12 Years ago ? SPECIMEN ADEQUACY ? Satisfactory for Evaluation ? - transformation zone component present ? GENERAL CATEGORIZATION ? Negative for Intraepithelial Lesion or Malignancy ? Document reviewed and electronically signed by: ? Yuli Verville,CT(ASCP) ? Report Date: ??11/04/2008 09:37 ? End of Report ? [facility] 11/01/2008 11/02/2008 Candice Robles BLOCK FEEDER PATHOLOGY ORDERABLES [facility] [address] [place] [address] documented in this encounter Visit Diagnoses Not on filedocumented in this encounter
--- OUTSIDE RECORDS SUMMARY | 2024-08-13 09:57 | XMS_ITS | Encounter Summary ---
Author Organization [facility] Address [address] [place] [address] Care Team Providers Care Warp Dyeing Tender Name Role Phone Unavailable Primary Care Provider Unavailabl e Encounter Details Date Type Department Care Team (Late st Contact Info) Description 08/20/2000 Results Only [facility] - [place] conversion [address] [place] [address] Katharina Stephenson, [facility] [address] [place] [address] [place] [address] Social History Tobacco Use Types Packs/Day Years Used Date Smoking Tobacco: Never Assessed Sex and Gender Information Value Date Recorded Sex Assigned at Not on file Gender Identity Female 01/10/2024 11:47 EDT Sexual Orientation Not on file documented as of this encounter Plan of Treatment Not on file documented as of this encounter Procedures Procedure Name Priority Date/Time Associated Diagnosis Comments CYTOPATHOLOGY Routine 08/20/2000 0:00 EST documented in this encounter Results * CYTOPATHOLOGY (08/20/2000 0:00 EST) Pathology Report: CYTOPATHOLOGY REPORT Reports generated via electronic interface contain original data; however they are lacking the format of the original report. Caution should be taken when reading/interpreti ng unformatted reports. Name: ? ADRIANNA MARCUS ? Accession #: ? [id number] : ? 1945 (Age: 55) ??F ?Collect Date: ? 08/20/2000 Location: ? [facility] ? Receive Date: ? 08/21/2000 Provider: ?KATHARINA STEPHENSON UNDERCOVER COP Copy to: ? Specimen/Source: ?ThinPrep Pap Test, Cervix/Endocervix Last Menstrual Period: ? 05/24/00 Menstrual/Pregnanc y Status: ? Menopausal ? SPECIMEN ADEQUACY ? Satisfactory for evaluation. GENERAL CATEGORIZATION ? Benign Cellular Changes DESCRIPTIVE DIAGNOSIS ? Fungal organisms present morphologically consistent with Rylee species. ? Document reviewed and electronically signed by: ? DAMIAN Gutierrez(ASCP) ? Report Date: ??08/28/2000 11:47 End of Report [facility] 08/20/2000 08/21/2000 Katharina Stephenson UNDERCOVER COP PATHOLOGY ORDERABLES [facility] [address] [place] [address] documented in this encounter Visit Diagnoses Not on filedocumented in this encounter
--- OUTSIDE RECORDS SUMMARY | 2024-08-13 09:57 | XMS_ITS | Encounter Summary ---
Author Organization [facility] Address [address] [place] [address] Care Team Providers Care Fish Hatchery Assistant Name Role Phone Unavailable Primary Care Provider Unavailabl e Encounter Details Date Type Department Care Team (Late st Contact Info) Description 09/25/2004 Results Only [facility] - [place] conversion [address] [place] [address] Lamine Childs MD [address] [facility] [address] [address] Social History Tobacco Use Types [...] Priority Date/Time Associated Diagnosis Comments CYTOPATHOLOGY Routine 09/25/2004 0:00 EST documented in this encounter Results * CYTOPATHOLOGY (09/25/2004 0:00 EST) Pathology Report: CYTOPATHOLOGY REPORT Reports generated via electronic interface contain original data; however they are lacking the format of the original report. Caution should be taken when reading/interpreti ng unformatted reports. Name: ? ADRIANNA MARCUS ? Accession #: ? [id number] : ? 1945 (Age: 59) ??F ?Collect Date: ? 09/25/2004 Location: ? [facility] ? Receive Date: ? 09/26/2004 Provider: ?LAMINE CHILDS MD Copy to: ? Specimen/Source: ?ThinPrep Pap Test, Cervix/Endocervix Last Menstrual Period: ? Other: ? Additional clinical information: Cx stenosis ? SPECIMEN ADEQUACY ? Satisfactory for Evaluation - transformation zone component present - scant squamous epithelial component secondary to excessive inflammation GENERAL CATEGORIZATION ? Negative for Intraepithelial Lesion or Malignancy ? Document reviewed and electronically signed by: ? DAMIAN Gutierrez(ASCP) ? Report Date: ??10/03/2004 11:23 End of Report [facility] 09/25/2004 09/26/2004 Lamine Childs MD PATHOLOGY ORDERABLES [facility] [address] [place] [address] documented in this encounter Visit Diagnoses Not on filedocumented in this encounter
[2024-08-13 15:25] LABS: ALT 22 U/L (14-59); AST 24 U/L (15-37); Albumin 3.5 g/dL (3.4-5.0); Alkaline Phosphatase 118 U/L (46-116); BUN 10 mg/dL (7-18); Bilirubin, Total 0.61 mg/dL (0.2-1.0); CREATININE 0.9 mg/dL (0.55-1.02); Calcium 9.3 mg/dL (8.5-10.1); Calculated LDL 80 mg/dL (<100); Chloride 106 mmol/L (98-107); Cholesterol 165 mg/dL (<200); Estimated GFR 65.44 (mL/min/1.73m2); Glucose 94 mg/dL (74-106); HDL Cholesterol 77 mg/dL (40-60); Potassium 4.9 mmol/L (3.5-5.1); Sodium 142 mmol/L (136-145); Triglyceride 42 mg/dL (<150)
== END 2024-08-13 09:43 | disposition home or self-care (01) ==
LOC: NCHCN 09:42
PROVIDERS: Visit Provider Family Medicine
DX: R03.0 Elevated blood-pressure reading, without diagnosis of hypertension (principal); E78.5 Hyperlipidemia, unspecified
CPT/HCPCS: 80053; 80061

== ENCOUNTER 2025-08-19 08:12 | Outpatient (REF) | payer MEDICARE, SELFPAY ==
[2025-08-19 18:08] LABS: ALT 14 U/L (10-49); AST 29 U/L (<34); Albumin 3.9 g/dL (3.4-5.0); Alkaline Phosphatase 99 U/L (46-116); Anion Gap 7.4 mmol/L (3-11); BUN 10 mg/dL (9-23); Bilirubin, Total 0.80 mg/dL (0.2-1.2); CO2 27.6 mmol/L (20.0-31.0); Calcium 9.2 mg/dL (8.3-10.6); Chloride 108 mmol/L (98-107); Cholesterol 147 mg/dL (<200); Glucose 91 mg/dL (74-106); HDL Cholesterol 60 mg/dL (>40); Potassium 4.9 mmol/L (3.5-5.1); Sodium 143 mmol/L (136-145); Total Protein 6.8 g/dL (5.7-8.2)
== END 2025-08-19 08:13 | disposition home or self-care (01) ==
LOC: NCHCN 08:12
PROVIDERS: Visit Provider Family Medicine
DX: R03.0 Elevated blood-pressure reading, without diagnosis of hypertension (principal); E78.5 Hyperlipidemia, unspecified
CPT/HCPCS: 80053; 80061